=== PATIENT | female | born 2000 | race Hispanic/Latino ===

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

== ENCOUNTER 2024-01-18 02:04 | Inpatient (IN) | payer OTHER, SELFPAY ==
[2024-01-18] MEDS ORDERED: Ondansetron ODT 4 MG TAB PO PRN (02:48)
[2024-01-18] MEDS: CEFAZOLIN 1 GM in Sodium Chloride 0.9% 100 ML IVPB SCH (04:01)
[2024-01-18] MEDS: Morphine 2 MG/ML VIAL SLOW IVP SCH (04:01)
[2024-01-18 04:02] LABS: #Basophils Less than 0.03 10x3/uL (0.0-0.2); #Eosinphils Less than 0.03 10x3/uL (0.0-0.7); %Basophils 0.1 % (0.0-1.0); %Monocytes 7.6 % (0.0-10.0); %Neutrophils 82.7 % (42.0-75.0); Hematocrit 33.9 % (36.0-47.0); Hemoglobin 11.6 g/dL (12.0-16.0); Mean Corpuscular HGB CONC 34.2 g/dL (32.0-36.0); Mean Corpuscular Hemoglobin 30.1 pg (27.0-31.0); Mean Corpuscular Volume 88.1 fL (78.0-98.0); Mean Platelet Volume 10.4 fL (7.4-10.4); Platelet Count 144 10x3/uL (130-400); RBC Distribution Width 16.4 % (11.5-14.5); Red Blood Cell (RBC) Count 3.85 mill/uL (4.20-5.40)
[2024-01-18 04:12] LABS: Lactic Acid 2.86 mmol/L (0.5-2.2)
[2024-01-18 04:16] LABS: Fibrinogen 215 mg/dL (253-463)
[2024-01-18 04:17] LABS: ALT (SGPT) 15 U/L (8-55); AST (SGOT) 28 U/L (5-34); Albumin 2.8 g/dL (3.5-5.0); Alkaline Phosphatase 76 U/L (40-110); Anion Gap 13 mmol/L (10-20); BUN (Urea Nitrogen) 5 mg/dL (7.0-18.7); Bilirubin, Total 0.5 mg/dL (0.2-1.2); Calc. Creatinine Clearance 168 mL/min (70-130); Calcium 8.9 mg/dL (7.8-10.44); Carbon Dioxide 22 mmol/L (22-29); Chloride 104 mmol/L (98-107); Estimated GFR 132; Globulin 2.9 g/dL (2.4-3.5); Glucose 104 mg/dL (70-105); INR-International Normal Ratio 1.1; Magnesium 1.6 mg/dL (1.6-2.6); Phosphorus 3.6 mg/dL (2.3-4.7); Potassium 3.3 mmol/L (3.5-5.1); Protein, Total 5.7 g/dL (6.0-8.3); Prothrombin Time 13.7 sec (12.0-14.7); Sodium 136 mmol/L (136-145)
[2024-01-18] MEDS: Lactated Ringer's 1,000 ML IV SCH (04:40)
[2024-01-18 04:48] LABS: D-Dimer Test Greater than 20.00 mcg/mL (0.27-0.43)
[2024-01-18] MEDS: Acetaminophen 325 MG TAB PO PRN (05:05)
[2024-01-18] MEDS ORDERED: Electrolyte Replacement Protocol 1 EACH FS SCH (07:00)
[2024-01-18 07:16] LABS: Lactic Acid 1.73 mmol/L (0.5-2.2)
[2024-01-18] MEDS: Potassium Chloride 20 MEQ TAB PO SCH (07:54)
[2024-01-18] MEDS: Magnesium 2 GM/50 ML(in water) 2 GM in Premix 1 BAG IVPB SCH (07:54)
[2024-01-18] MEDS: HYDROcodone/Acetaminophen 5/325 mg Tablet PO PRN (10:04)
[2024-01-18 10:43] LABS: #Basophils Less than 0.03 10x3/uL (0.0-0.2); #Eosinphils Less than 0.03 10x3/uL (0.0-0.7); %Basophils 0.2 % (0.0-1.0); %Eosinophils 0.1 % (0.0-10.0); %Lymphocytes 16.9 % (21.0-51.0); %Monocytes 10.5 % (0.0-10.0); %Neutrophils 71.6 % (42.0-75.0); Hematocrit 31.3 % (36.0-47.0); Hemoglobin 10.6 g/dL (12.0-16.0); Mean Corpuscular HGB CONC 32.9 g/dL (32.0-36.0); Mean Corpuscular Hemoglobin 29.9 pg (27.0-31.0); Mean Platelet Volume 10.7 fL (7.4-10.4); Platelet Count 147 10x3/uL (130-400); RBC Distribution Width 17.2 % (11.5-14.5); Red Blood Cell (RBC) Count 3.54 mill/uL (4.20-5.40)
[2024-01-18 11:02] LABS: ALT (SGPT) 13 U/L (8-55); AST (SGOT) 26 U/L (5-34); Albumin 2.5 g/dL (3.5-5.0); Alkaline Phosphatase 67 U/L (40-110); Anion Gap 13 mmol/L (10-20); BUN (Urea Nitrogen) 4 mg/dL (7.0-18.7); Bilirubin, Total 0.3 mg/dL (0.2-1.2); Calc. Creatinine Clearance 159 mL/min (70-130); Calcium 8.4 mg/dL (7.8-10.44); Carbon Dioxide 24 mmol/L (22-29); Chloride 101 mmol/L (98-107); Estimated GFR 131; Globulin 2.7 g/dL (2.4-3.5); Glucose 98 mg/dL (70-105); Potassium 3.7 mmol/L (3.5-5.1); Protein, Total 5.2 g/dL (6.0-8.3); Sodium 134 mmol/L (136-145)
[2024-01-18] MEDS: HYDROcodone/Acetaminophen 5/325 mg Tablet PO SCH (14:36)
[2024-01-18] MEDS ORDERED: Promethazine HCl 25 MG/ML VIAL IM PRN (15:00)
[2024-01-18] MEDS ORDERED: diphenhydrAMINE 25 MG CAP PO PRN (15:00)
[2024-01-18] MEDS ORDERED: Naloxone HCl 0.4 mg/ml Vial IV PRN (15:00)
[2024-01-18] MEDS ORDERED: diphenhydrAMINE 50 MG/ML VIAL IM PRN (15:00)
[2024-01-18] MEDS ORDERED: Ondansetron PF 4 MG/2 ML Vial IVP PRN (15:00)
[2024-01-18] MEDS ORDERED: Communication Order-Pharmacy FS SCH (15:00)
[2024-01-18] MEDS ORDERED: FENTANYL 500 MCG/10 ML VIAL 2,000 MCG in Sodium Chloride 0.9% 60 ML IV PRN (15:00)
[2024-01-18] MEDS ORDERED: diphenhydrAMINE 50 MG/ML VIAL IVP PRN (15:00)
[2024-01-18] MEDS: Fentanyl CADD 100 ML IVPB SCH (15:24)
[2024-01-18 18:43] LABS: Platelet Count 55 10x3/uL (130-400)
[2024-01-18 18:54] LABS: Fibrinogen 326 mg/dL (253-463)
[2024-01-18 18:55] LABS: PTT 31.3 sec (22.9-36.1); Prothrombin Time 13.5 sec (12.0-14.7)
[2024-01-18 19:02] LABS: D-Dimer Test 11.51 mcg/mL (0.27-0.43)
[2024-01-18 23:53] LABS: #Basophils Less than 0.03 10x3/uL (0.0-0.2); %Basophils 0.2 % (0.0-1.0); %Eosinophils 0.5 % (0.0-10.0); %Lymphocytes 27.3 % (21.0-51.0); %Monocytes 9.8 % (0.0-10.0); %Neutrophils 61.6 % (42.0-75.0); Hematocrit 27.9 % (36.0-47.0); Hemoglobin 9.3 g/dL (12.0-16.0); Mean Corpuscular HGB CONC 33.3 g/dL (32.0-36.0); Mean Corpuscular Hemoglobin 30.3 pg (27.0-31.0); Mean Corpuscular Volume 90.9 fL (78.0-98.0); Mean Platelet Volume 10.3 fL (7.4-10.4); Platelet Count 127 10x3/uL (130-400); RBC Distribution Width 17.9 % (11.5-14.5); Red Blood Cell (RBC) Count 3.07 mill/uL (4.20-5.40)
[2024-01-19 00:48] VITALS: TEMP 98.6
[2024-01-19] MEDS: HYDROcodone/Acetaminophen 5/325 mg Tablet PO PRN (01:32)
[2024-01-19] MEDS: Misoprostol 200 MCG TAB PR SCH (01:55)
== END 2024-01-19 01:45 | disposition still patient (30) | DRG 776 ==
LOC: CCU 02:37 → MERGE 02:37
PROVIDERS: ADMIT Family Medicine; ATTEND Family Medicine
DX: O72.1 Other immediate postpartum hemorrhage (principal); D65 Disseminated intravascular coagulation [defibrination syndrome]; Z79.899 Other long term (current) drug therapy
CPT/HCPCS: 36415; 80053; 83605; 83735; 84100; 85025; 85049; 85300; 85362; 85379; 85384; 85610; 85730; 86850; 86900; 86901; J0690; J2272; J3010; J3475